=== PATIENT | male | born 1965 | race Caucasian/White ===

== ENCOUNTER 2021-03-04 08:25 | Emergency (ER) | payer MEDICAID ==
[~2021-03-04] VITALS: Ht 167.6 cm; Wt 77.0 kg
[2021-03-04 09:11] LABS: BASOPHILS % 1.3 % (0.0-2.0); HEMATOCRIT. 35.9 % (42.0-52.0); HEMOGLOBIN. 11.6 g/dL (14.0-18.0); LYMPHOCYTES % 12.4 % (20.0-50.0); MEAN CORPUSCULAR HEMOGLOBIN 26.7 pg (28.0-32.0); MEAN CORPUSCULAR VOLUME 82.3 fL (80.0-94.0); MEAN PLATELET VOLUME 8.6 fl (7.4-10.4); MONOCYTES % 10.4 % (2.0-8.0); NEUTROPHILS % 74.9 % (40.0-76.0); PLATELET 232 x1000/uL (130-400); RED BLOOD CELL COUNT 4.36 mill/uL (4.7-6.1); RED CELL DISTRIBUTION WIDTH 19.4 % (11.6-14.6)
[2021-03-04 09:20] LABS: CHLORIDE 104 mEq/L (98-107)
[2021-03-04] MEDS ORDERED: FUROSEMIDE 20MG/2ML VIAL IVP NR (09:45)
[2021-03-04 10:45] VITALS: BP 133/97
[2021-03-04] MEDS ORDERED: IOHEXOL-350 100 ML BOTTLE ONE (10:49)
== END 2021-03-04 13:13 | disposition short-term general hospital (02) ==
LOC: ER 08:32
DX: I11.0 Hypertensive heart disease with heart failure (principal); I50.9 Heart failure, unspecified; J44.9 Chronic obstructive pulmonary disease, unspecified; E11.9 Type 2 diabetes mellitus without complications; F17.290 Nicotine dependence, other tobacco product, uncomplicated; F15.10 Other stimulant abuse, uncomplicated
CPT/HCPCS: 36415; 71045; 71275; 80053; 83880; 84484; 85025; 85379; 93005; 96374; 99285; J1940; Q9967; Z7610